=== PATIENT | male | born 1975 | race Two or more races ===

== ENCOUNTER 2023-05-31 00:38 | Emergency (ER) | payer BC ==
[~2023-05-31] VITALS: Ht 180.3 cm; Wt 104.3 kg
[2023-05-31 04:17] VITALS: BP 115/74; TEMP 99.2; O2SAT 97
== END 2023-05-31 04:18 | disposition home or self-care (01) ==
LOC: ER 00:50
DX: J06.9 Acute upper respiratory infection, unspecified (principal); Z20.822 Contact with and (suspected) exposure to COVID-19
CPT/HCPCS: 71045-TC; 86403-TC